=== PATIENT | female | born 1965 | race Caucasian/White ===

== ENCOUNTER → 2018-04-12 | Outpatient (CLI) | payer OTHER ==
[~2018-04-12] MED LIST: IBUP-1027 PO; L-NO1TBD7 PO; LACT1CAP6 PO; LEVO50TA5 PO; MULT1TAB52 PO; OMEG-165 PO; UBID30CA9 PO
--- NOTE | 2018-04-12 16:07 | PAIN ---
DATE OF SERVICE: 04/12/2018 INITIAL CONSULTATION FOR PAIN CLINIC CHIEF COMPLAINT: Neck and bilateral shoulder and upper extremity pain. HISTORY OF PRESENT ILLNESS: The patient is a 52-year-old female who presents with history of pain in the neck and shoulders for about 6-8 years, worse over the past 6 months or so, worse with activity. Pain in the base of the neck and shoulders radiating bilaterally into the upper arms, shoulders and with significant pain and fatigability in the hands, somewhat worse on the right than the left, but present bilaterally. 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 The patient describes it as throbbing, aching, intermittent in intensity, radiating from the neck and the shoulders. The patient did have MRI scan of cervical spine, which shows some degenerative changes in the disks with posterior ridging, most severe at C4-C5 with a small central disk osteophyte complex with cord deformity and moderate central stenosis, mild stenosis at C5-C6 and C6-C7 without lateralizing disk protrusions. The patient rates her disability from 0-10, 10 being the worst, 6 with family home responsibilities, especially yardwork, 3 with recreation and occupation, 2 with social activity, 0 with sexual behavior and 3 with self care and 2 with life support activities. The patient has tried ibuprofen, heating pad seems to help, ThermaCare pads around the neck seem to help as well. She had no formal physical therapies, chiropractic treatments or other modalities tried at this time. The patient reports no overt loss of motor function, but significant fatigability of the upper extremities with any repetitive motion such as reaching over her head with her hands, even getting dressed, putting her arm through a sleeve of a jacket or shirt, is painful with driving the car, holding on with her arms as well. The patient reports it wakes her from sleep occasionally, but not every night, about 2-3 times a week, does not affect her bowel or bladder control or ability to walk. PAST MEDICAL HISTORY: Significant for arthritis, cigarette smoking, quit 18 years ago; hypothyroidism. PREVIOUS SURGERY: Include breast augmentation in 2010, laryngoscope and LASIK procedure in 2005. CURRENT MEDICATIONS: Include levonorgestrel, omega fish oils, multivitamins, coenzyme Q10, ibuprofen, levothyroxine. ALLERGIES: The patient has no known drug allergies. FAMILY HISTORY: Significant for heart disease, prostate cancer, melanoma and HPV. SOCIAL HISTORY: The patient drinks 3 to 4 glasses of wine a week on average, does not smoke, quit many years ago, does not use any illegal, illicit or recreational drugs. She is , lives with her spouse, has one child, living at home and lives in [place], [place]. REVIEW OF SYSTEMS: The patient's review of systems is positive for those items mentioned in history of present illness. All systems reviewed and otherwise negative. It is complete, full and well documented on the patient's chart. PHYSICAL EXAMINATION: VITAL SIGNS: Blood pressure 140/89, pulse 64, respirations 16, temperature 98.3 degrees Fahrenheit, height is 5 feet 8 inches, weight is 163 pounds. GENERAL: The patient is awake, alert, oriented, appropriate, very pleasant demeanor. HEENT: Head is normocephalic, atraumatic. Extraocular movements intact and symmetrical. Oral cavity: Mucous membranes moist and pink. Dentition intact. NECK: Shows anterior throat supple without palpable lymphadenopathy noted. Swallow reflex symmetrical. CHEST: Shows normal on inspection. Breath sounds clear to auscultation bilaterally. HEART: Shows S1, S2 clear. No murmurs auscultated. ABDOMEN: Soft, nontender, nondistended. No palpable organomegaly is noted. No rebound or guarding demonstrated. BACK: Shows spine grossly in the midline, normal-appearing cervical lordotic curvature, thoracic kyphotic curvature, and lumbar lordotic curvature. Cervical paraspinous muscle shows symmetrical on inspection as is the trapezius musculature, which is firm, but without specific trigger points, without any radiation of pain, but mildly tender with palpation in the inferior edge of the cervical paraspinous musculature and the superior medial aspects of the trapezius musculature bilaterally. The patient has full rotational motion of cervical spine both laterally greater than 45 degrees, closer to 90 degrees right and left as well as full extension, full forward flexion without significant pain reported. Upper extremities show deep tendon reflexes 2+ in the biceps and triceps tendons. Motor exam is strong with oil rig driller strength rated at 5/5 as is bicep and tricep flexion. Peripheral pulses are 2+ radial distribution. No peripheral edema is noted. The patient's shoulder shrug shows strong and intact without loss of strength on resistance bilaterally. Abduction of shoulder is 90 degrees, some minor pain with resistance only on the right side in the base of the shoulder radiating to the posterior trapezius, but not on the left. No loss of strength on resistance bilaterally. IMPRESSION: This is a 52-year-old female with, 1. Long history of neck and bilateral upper extremity pain in a radicular fashion, worse over the past 6 months or so. 2. MRI scan of cervical spine as noted. 3. Arthritis. 4. Hypothyroidism. PLAN: Options were discussed with the patient including conservative medical management, physical therapy, interventional techniques and she would like to pursue interventional techniques. We discussed a cervical epidural steroid injection, but she would like to wait as her deductible for her insurance is very high. We also discussed some more conservative measures and will try Medrol Dosepak first and see how she does with this. She will take this as scheduled. She was given instruction as well as side effects to be aware of with the medication and once she is finished with this, we will follow up to see if the pain is improved. The patient will continue to do stretching and strengthening exercises working out. She does a lot of exercise and yoga and Pilates and will continue with this as tolerated. The patient will follow up in approximately 2-3 weeks as scheduled. KRISHAN ANDERSON MD DR: KIN/jerri JOB#: [id number] / [id number]
== END | disposition home or self-care (01) ==
LOC: PNCL 10:44
PROVIDERS: ATTEND Anesthesiology
DX: M54.2 Cervicalgia (principal); M25.511 Pain in right shoulder; M25.512 Pain in left shoulder; E03.9 Hypothyroidism, unspecified; M19.90 Unspecified osteoarthritis, unspecified site; Z87.891 Personal history of nicotine dependence; Z82.49 Family history of ischemic heart disease and other diseases of the circulatory system; Z80.8 Family history of malignant neoplasm of other organs or systems
CPT/HCPCS: 99214

== ENCOUNTER → 2018-05-18 | Outpatient (CLI) | payer OTHER ==
[~2018-05-18] MED LIST changes: +IOHEXOL 180 MG/ML 10 ML VIAL. ONE; +methylPREDNISolone ACETATE 40 MG/ML VIAL. ONE; +methylPREDNISolone ACETATE 80 MG/ML VIAL. ONE
--- NOTE | 2018-05-18 22:03 | PAIN ---
DATE OF SERVICE: 05/18/2018 PROGRESS NOTE FOR PAIN CLINIC DIAGNOSES: Cervical radiculopathy with cervical degenerative disk disease. HISTORY OF PRESENT ILLNESS: The patient is a 52-year-old female who returns for followup status post initial evaluation and preauthorization for cervical epidural steroid injection, still significant pain in the neck and base of the shoulder, especially into the right upper extremity. The patient reports no new motor or sensory deficits and no new changes, but it is much better after the Medrol Dosepak, we prescribed at her last visit with about a 50%-60% improvement for the first 5 days. The patient reports the pain returned after that to a moderate extent with numbness and tingling in the right arm and now describes as aching, tingling, burning, becoming more constant, rated as 8 on a scale of 10 at its worst, 7 on average, 2 at its least and is a 7 today. The patient reports no new changes or other complaints. PHYSICAL EXAMINATION: VITAL SIGNS: The patient's blood pressure 163/99, pulse is 75, respirations 16 and temperature 98.5 degrees Fahrenheit. Height is 5 feet 8 inches and weight is 166 pounds. GENERAL: The patient is awake, alert, oriented, appropriate and very pleasant demeanor. HEENT: Head shows normocephalic and atraumatic. Extraocular movements are intact and symmetrical. Oral cavity: Mucous membranes moist and pink. Dentition is intact. NECK: Shows anterior throat supple without palpable lymphadenopathy noted. Swallow reflex is symmetrical. CHEST: Shows normal on inspection. Breath sounds are clear to auscultation bilaterally. HEART: Shows S1 and S2 clear. No murmurs auscultated. ABDOMEN: Soft, nontender and nondistended. No palpable organomegaly is noted. No rebound or guarding demonstrated. BACK: Shows spine grossly in the midline. Normal appearing thoracic kyphosis and cervical lordotic curvature. Cervical paraspinous muscle shows symmetrical on inspection, on palpation shows some moderate tenderness but only diffusely without significant tenderness on palpation. The patient shows good rotation of the cervical spine without difficulty or tenderness. The patient's neck shows good rotation as well as extension and flexion. EXTREMITIES: Upper extremities show deep tendon reflexes at 2+ in the biceps and triceps tendons. Motor exam is strong with 5/5 senior sales director strength, bicep and tricep flexion equal and symmetrical. Peripheral pulses are 2+ radial bilaterally and equal. No peripheral edema is noted in the upper extremities. Options were discussed with the patient. The patient's old chart was reviewed as well as her current medication regimen updated. Current review of systems updated today as well. We will proceed with a cervical epidural steroid injection today with fluoroscopic guidance. Risks were again discussed including, but not limited to bleeding, infection, possibility of epidural hematoma and subsequent neurological compromise, dural puncture, headaches, spinal cord and/or nerve damage, side effects of steroid medication and poor results regarding pain control. The patient understands and wished to proceed. The patient will return to the clinic in approximately 2 weeks for followup, was counseled as to return appointment, activity level and side effects to be aware of. DIAGNOSIS: Cervical radiculopathy with cervical degenerative disk disease. PROCEDURE: Cervical epidural steroid injection, translaminar approach under sterile prep and drape using local anesthetic. MEDICATION INJECTED: A total of 120 mg Depo-Medrol plus 5 mL of preservative-free normal saline and 2 mL of Isovue for contrast. CONDITION AT DISCHARGE: Stable. The patient tolerated the procedure well and had no complications. KRISHAN ANDERSON MD DR: KIN/jerri JOB#: [id number] / [id number]
== END | disposition home or self-care (01) ==
LOC: PNCL 14:29
PROVIDERS: ATTEND Anesthesiology
DX: M50.123 Cervical disc disorder at C6-C7 level with radiculopathy (principal)
CPT/HCPCS: 62321; J1030; J1040; Q9965

== ENCOUNTER → 2018-06-02 | Outpatient (CLI) | payer OTHER ==
[~2018-06-02] MED LIST changes: -IOHEXOL 180 MG/ML 10 ML VIAL. ONE; -methylPREDNISolone ACETATE 40 MG/ML VIAL. ONE; -methylPREDNISolone ACETATE 80 MG/ML VIAL. ONE
--- NOTE | 2018-06-02 09:29 | PAIN ---
DATE OF SERVICE: 06/02/2018 PROGRESS NOTE FOR PAIN CLINIC DIAGNOSIS: Cervical radiculopathy with cervical degenerative disk disease. HISTORY OF PRESENT ILLNESS: The patient is a 52-year-old female who returns for followup status post cervical epidural steroid injection x 1. The patient reports about 75%-80% improvement, still lasting over the past 3 weeks in the neck and shoulders. The patient reports the aching, dull pain in her base of her neck has gone, still some tingling radiation into the right upper extremity in a radicular fashion but much better than it was. The patient reports she still has some pain in the thumbs and some on the left side as well but very much improved since her last visit. The patient reports she is sleeping better at night, increasing activity. She is doing much better with home activities, walking, working out and traveling with much greater ease and comfort and she is very pleased with her progress. The patient reports she is sleeping well through the night. It does not awaken her from sleep. Reports the pain is a 4 on a scale of 10 at its worst, 3 on average, 2 at its least and is a 2 today. The patient reports it is aching, tingling, again shooting into the right upper extremity, mostly in the biceps and the anterior forearm on the right side. The patient has not been dropping any items or have any new motor loss. PHYSICAL EXAMINATION: VITAL SIGNS: The patient's blood pressure 150/88, pulse 56, respirations 18 and temperature is 98.5 degrees Fahrenheit. Height is 5 feet 8 inches and weight is 168 pounds. GENERAL: The patient is awake, alert, oriented, appropriate and very pleasant demeanor. HEENT: Head shows normocephalic and atraumatic. Extraocular movements are intact and symmetrical. Oral cavity: Mucous membranes are moist and pink. Dentition intact. NECK: Shows anterior throat supple without palpable lymphadenopathy noted. Swallow reflex symmetrical. CHEST: Shows normal with inspection. Breath sounds clear to auscultation bilaterally. HEART: Shows S1 and S2 clear. No murmurs auscultated. ABDOMEN: Soft, nontender and nondistended. No palpable organomegaly is noted. BACK: Shows spine grossly in the midline. Cervical paraspinous musculature shows symmetrical on inspection, on palpation shows some mild tenderness in the inferior aspect of the cervical paraspinous musculature, more on the right than the left but present with only minimal tenderness. No atrophy or hypertrophy. No trigger points. The patient has full rotational motion both laterally greater than 45 degrees closer to 90 degrees right and left as full extension, full forward flexion without significant pain reported. EXTREMITIES: The patient's upper extremities show deep tendon reflexes at 2+ in the biceps and triceps tendons. Motor exam is strong with hydrodynamics teacher strength rated at 5/5, biceps flexion on the right at about 4 on a scale of 5 and 5/5 on the left. Shoulder shrug is strong and intact as is abduction of the shoulders without loss of strength on resistance with some mild tenderness in the base of the right neck and shoulder. Peripheral pulses are 2+ radial distribution. No peripheral edema is noted bilaterally. Options were discussed with the patient. The patient's old chart was reviewed as well as her current medication regimen updated. Current review of systems updated today as well and we will proceed with a preauthorization for a second cervical epidural steroid injection. She still has radicular pain in the C6-C7 dermatomal distribution on the right as previously but significantly improved for good 3 weeks plus from her first injection. The patient will continue to do strengthening and stretching exercises as well as her normal workout routine and return to the clinic for a second cervical epidural steroid injection once preauthorization is obtained. KRISHAN ANDERSON MD DR: KIN/jerri JOB#: [id number] / [id number]
== END | disposition home or self-care (01) ==
LOC: PNCL 07:49
PROVIDERS: ATTEND Anesthesiology
DX: M50.10 Cervical disc disorder with radiculopathy, unspecified cervical region (principal)
CPT/HCPCS: G0463

== ENCOUNTER → 2018-06-23 | Outpatient (CLI) | payer OTHER ==
[~2018-06-23] MED LIST changes: +IOHEXOL 180 MG/ML 10 ML VIAL. ONE; +methylPREDNISolone ACETATE 40 MG/ML VIAL. ONE; +methylPREDNISolone ACETATE 80 MG/ML VIAL. ONE
--- NOTE | 2018-06-23 09:27 | PAIN ---
DATE OF SERVICE: 06/23/2018 PROGRESS NOTE FOR PAIN CLINIC DIAGNOSIS: Cervical radiculopathy with cervical degenerative disk disease. HISTORY OF PRESENT ILLNESS: The patient is a 52-year-old female who returns for followup status post cervical epidural steroid injection x 1 about 80% improvement. After preauthorization, she has now returned for second injection today, still about 70% improvement overall. The patient reports no new motor or sensory deficits and no new bowel or bladder incontinence or other complaints. Still pain in the base of the neck, right upper extremity, some tingling and numbness in both the hands, but the pain in the shoulders has completely gone. The patient reports it is an aching pain in the arm and hand and some in the base of the neck and tingling in the right more than the left. The patient reports it is on and off in intensity, worse with activity, repetitive motions, driving a car with her right arm, rates her pain as a 6 on a scale 10 at its worst, 4 on average, 2 at its least and is a 2 today. The patient reports no new changes or other deficits. PHYSICAL EXAMINATION: VITAL SIGNS: The patient's blood pressure 142/94, pulse 60, respirations 18 and temperature 98.6 degrees Fahrenheit. Height is 5 feet 8 inches and weighs 170 pounds. GENERAL: The patient is awake, alert, oriented, appropriate and very pleasant demeanor. HEENT: Head shows normocephalic and atraumatic. Extraocular movements are intact and symmetrical. Oral cavity, mucous membranes are moist and pink. Dentition is intact. NECK: Shows anterior throat supple without palpable lymphadenopathy noted. Swallow reflex symmetrical. CHEST: Shows normal on inspection. Breath sounds clear to auscultation bilaterally. HEART: Shows S1 and S2 clear. No murmurs auscultated. ABDOMEN: Soft, nontender and nondistended. No palpable organomegaly is noted. No rebound or guarding demonstrated. BACK: Shows spine grossly in the midline. Normal appearing thoracic kyphosis and lumbar lordotic curvature. Lumbar paraspinous muscle shows symmetrical on inspection as does thoracic paraspinous muscles. Cervical paraspinous muscle shows moderate tenderness with palpation but symmetrical on inspection. No radiation of pain and no trigger points. The patient has good rotational motion of the cervical spine both laterally as well as extension and flexion without significant pain reported. EXTREMITIES: Upper extremities show deep tendon reflexes 2+ in the biceps and triceps tendons. Motor exam is strong with 5/5 edge stainer machine strength, bicep and tricep flexion equal. Peripheral pulses are 2+ radial distribution. No peripheral edema is noted bilaterally. Options were discussed with the patient. The patient's old chart was reviewed as well as her current medication regimen updated. Current review of systems updated today as well. We will proceed with a second in this series of cervical epidural steroid injection today with fluoroscopic guidance. Risks were again discussed including, but not limited to bleeding, infection, possibility of epidural hematoma, subsequent neurological compromise, dural puncture, headaches, spinal cord and/or nerve damage, side effects of steroid medication and poor results regarding pain control. The patient understands and wished to proceed. The patient will return to the clinic in approximately 2 weeks for followup, was counseled as to return appointment, activity level and side effects to be aware of. DIAGNOSIS: Cervical radiculopathy with cervical degenerative disk disease. PROCEDURE: Cervical epidural steroid injection, translaminar approach, C6-C7 level using C-arm fluoroscopic guidance under sterile prep and drape using local anesthetic. MEDICATION INJECTED: A total of 120 mg Depo-Medrol plus 5 mL of preservative-free normal saline and 2 mL of Isovue for contrast. CONDITION AT DISCHARGE: Stable. The patient tolerated the procedure well and had no complications. KRISHAN ANDERSON MD DR: KIN/jerri JOB#: [id number] / [id number]
== END | disposition home or self-care (01) ==
LOC: PNCL 07:36
PROVIDERS: ATTEND Anesthesiology
DX: M50.123 Cervical disc disorder at C6-C7 level with radiculopathy (principal)
CPT/HCPCS: 62321; J1030; J1040; Q9965